=== PATIENT | female | born 1960 | race Caucasian/White ===

== ENCOUNTER 2024-11-06 19:14 | Emergency (ER) | payer OTHER, SELFPAY ==
--- NOTE | 2024-11-06 19:16 | ED.HA ---
HPI - Headache General Chief Complaint: Headache Stated Complaint: migraine Time Seen by Provider: 11/06/24 19:31 Source: patient Mode of arrival: ambulatory Limitations: no limitations History of Present Illness HPI Narrative: 64-year-old female presents with concern for migraine. She reports history of migraines. She lives in [facility] and is visiting her son, she forgot to bring her migraine medicine. Reports she did not sleep well last night and got a migraine today. She reports nausea with 2 episodes of vomiting. She reports vomiting and nausea are typical for her migraines. She took Excedrin migraine today without relief MD elicited complaint: migraine Related Data Home Medications ?Medication ?Instructions ?Recorded ?Confirmed ?Last Taken ?Type omeprazole 40 mg capsule,delayed mg 11/06/24 Unknown History release ondansetron 4 mg disintegrating 4 mg PO DAILY 11/06/24 11/06/24 Unknown History tablet pravastatin 80 mg tablet mg 11/06/24 Unknown History sumatriptan succinate 50 mg tablet mg PO 11/06/24 Unknown History venlafaxine 150 mg mg PO 11/06/24 Unknown History capsule,extended release 24 hr Allergies Allergy/AdvReac Type Severity Reaction Status Date / Time No Known Allergies Allergy Verified 11/06/24 19:26 Review of Systems Review of Systems: CONSTITUTIONAL: Denies malaise, chills, sweats, or fever. EYES: Denies visual changes GASTROINTESTINAL: Report nausea, vomiting NEUROLOGIC: Denies numbness, weakness. Reports headache. All systems reviewed & are unremarkable except as noted in HPI and below PMFSH Comments At time of signature, agree with nursing past medical, surgical, social and family history. There is no relevant family history pertinent to the presenting complaint Exam Narrative: GENERAL: Well-appearing, well-nourished, and in no acute distress. HEAD: Normocephalic, atraumatic. EYES: PERRLA, sclera clear, and EOMI. No nystagmus. ENT: Nares clear. Mucous membranes moist. NECK: Supple. CHEST: No respiratory distress. Speaks in full sentences. HEART: Regular rate and rhythm. SKIN: Warm, dry, no visible rash. NEURO: Alert and oriented x3. No focal deficits. Cranial nerves II through XII grossly intact PSYCH: Normal mood and affect Course Course Emergency Course: Patient is aware of diagnosis, understands and agrees to treatment plan. Anticipatory guidance given. Patient agrees to follow-up as directed and is aware of reasons to seek care at the emergency department. Portions of this record may have been created with voice recognition software Level of Care: Express Care Visit Reevaluation(s) Reevaluation #1: Patient reports she is beginning to see improvement her headache Date: 11/06/24 Time: 19:59 Vital Signs Vital signs: Reviewed. MDM - Headache MDM Narrative Medical decision making narrative: The patient presents with an acute onset headache for 1 day in duration. Patient has no past history of headaches. There is not a history of anticoagulation, trauma, , cancer or immunocompromised state. Mental status was normal, no neurological deficits were noted. Differential Diagnosis considered includes hypertensive emergency, subarachnoid hemorrhage, meningitis, trauma, CVA, migraine. IM Toradol, p.o. Benadryl, sublingual Zofran given. The patient improved and was discharged in stable condition. Recommendations were given for follow-up with PCP in 1-2 days and to return to the ED for worsening of headache or any other concerns Based on the patient's history and physical there is very low clinical suspicion for significant intracranial pathology. The headache was NOT sudden onset, NOT maximal at onset, there are NO neurologic findings, the patient does NOT have a fever, the patient does NOT have any jaw claudication, the patient does NOT endorse a clotting disorder, patient DENIES any trauma or eye pain and the headache is NOT associated with dizziness or ataxia. Will treatment the patient symptomatically and reassess. Critical Care Time Critical Care Time Critical Care Time: No Discharge Plan Discharge Clinical Impression: Migraine Patient Disposition: Home Condition: Stable Instructions: Migraine Headache (ED) Additional Instructions: 1) Please follow-up with your primary care doctor in the next 1-2 days. 2) If you have any worsening of symptoms or any other urgent concerns please go to the ER. 3) Please take medications as prescribed and continue taking your home medications as usual. 4) Please read and follow information included in discharge instructions. Patient Language: Armenian Prescriptions: New ondansetron 4 mg tablet,disintegrating 4 mg PO Q6H PRN (Reason: nausea and vomiting) Qty: 4 0RF sumatriptan succinate 25 mg tablet See Rx Instructions .ROUTE .COMPLEX Qty: 2 0RF Rx Instructions: take 1 tab at onset of headache; if no relief may repeat 1 tab after at least 2 hrs; max = 4 tabs/24 hr No Action venlafaxine 150 mg capsule,extended release 24hr PO sumatriptan succinate 50 mg tablet PO omeprazole 40 mg capsule,delayed release(DR/EC) ondansetron 4 mg tablet,disintegrating 4 mg PO DAILY pravastatin 80 mg tablet Follow-up/Referrals: UNKNOWN,DOCTOR [Non-Staff] -
[2024-11-06 19:23] VITALS: BP 162/79; PULSE 75; RESP 16; TEMP 36.8; O2SAT 99
[2024-11-06] MEDS: ONDANSETRON HCL ODT 4 MG TABLET SUBLINGUAL (19:45)
[2024-11-06] MEDS: KETOROLAC (*BKC) 60 MG/2 ML VIAL IM (19:45)
[2024-11-06] MEDS: diphenhydrAMINE HCL ELIXIR 12.5 MG/5 ML UDC 25 MG PO (19:45)
== END 2024-11-06 20:07 | disposition home or self-care (01) ==
PROVIDERS: Emergency Provider Nurse Practitioner; PCP Family Medicine
DX: G43.909 Migraine, unspecified, not intractable, without status migrainosus (principal); E78.00 Pure hypercholesterolemia, unspecified; K21.9 Gastro-esophageal reflux disease without esophagitis
CPT/HCPCS: 96372; 99203; A9270; G0463; J1885